=== PATIENT | male | born 1950 | race Caucasian/White ===

== ENCOUNTER 2022-06-12 19:39 | Emergency (ER) | payer MEDICARE, OTHER, SELFPAY ==
--- NOTE | 2022-06-12 19:42 | ED.EYEPROB ---
HPI - Eye Problem General Chief complaint: Eye Problems Stated complaint: Eye Problem Time Seen by Provider: 06/12/22 19:42 Source: patient and RN notes reviewed History of Present Illness HPI Narrative: Patient is a 71-year-old male who presents the urgent care with his spouse with complaints of left eye itchiness and pain. Patient states he was out working in the yard today and feels like he may have gotten a scratch on the eye. Patient states that he does wear glasses but was not wearing them at the time. 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 Patient does not wear contacts. Denies of any vision change. No other acute complaint. No acute distress noted. Patient aware of the plan of care. Some parts of this dictation were generated by voice recognition software and may contain typographical and/or grammatical inaccuracies. Related Data Home Medications Medication Instructions Recorded Confirmed amlodipine 5 mg tablet mg 06/12/22 carvedilol 12.5 mg tablet mg 06/12/22 rosuvastatin 10 mg tablet mg 06/12/22 Allergies Allergy/AdvReac Type Severity Reaction Status Date / Time No Known Allergies Allergy Verified 06/12/22 20:00 Review of Systems Review of Systems: CONSTITUTIONAL: Denies fever, chills, or sweats. EYES: Reports of left eye pain and discomfort ENT: Denies rhinorrhea, congestion, sore throat, or otalgia. CARDIOVASCULAR: Denies chest pain, palpitations, or edema. RESPIRATORY: Denies cough or dyspnea. GASTROINTESTINAL: Denies abdominal pain, nausea, vomiting, or diarrhea. GENITOURINARY: Denies dysuria or hematuria. SKIN: Denies rash or itching. MUSCULOSKELETAL: Denies back pain, joint pain, or myalgia. NEUROLOGIC: Denies headache, numbness, or weakness. All other systems reviewed are negative, except as documented in HPI. PMFSH Comments At the time of my signature, I reviewed and agree with the nursing past medical, surgical, social, and family history. There is no relevant family history pertinent to the patient complaint. Exam Narrative: GENERAL: This is a well-nourished, well-developed patient, in no apparent distress. HEAD: normocephalic, atraumatic. EYES: PERRL. Right sclera clear/white. Moderate left injected/erythemic conjunctive a and sclera without any obvious foreign body or traumatic injury. Vision is grossly intact. EARS: External ears normal NOSE: External nose normal with no obvious nasal discharge, nares without redness, no rhinorrhea. THROAT: Mucous membranes moist NECK: Neck supple SKIN: warm, intact with no suspicious lesions or rash, good texture and turgor. NEURO: awake, alert, and oriented to person, place and time. There were no obvious focal neurologic abnormalities. EXTREMITIES: No clubbing, cyanosis, or edema. Course Course Level of Care: Express Care Visit Vital Signs Vital signs: Vital Signs Temperature 98.1 F 06/12/22 19:50 Pulse Rate 73 06/12/22 19:50 Respiratory Rate 18 06/12/22 19:50 Blood Pressure 144/81 H 06/12/22 19:50 Pulse Oximetry 98 06/12/22 19:50 Temperature 98.1 F 06/12/22 19:50 Pulse Rate 73 06/12/22 19:50 Respiratory Rate 18 06/12/22 19:50 Blood Pressure 144/81 H 06/12/22 19:50 Pulse Oximetry 98 06/12/22 19:50 Reviewed-Patient is informed that they may have pre-hypertension or hypertension based on a blood pressure reading in the department. I recommend the patient call the primary care provider listed on their discharge instructions or a physician of their choice this week to arrange follow-up for further evaluation of possible pre-hypertension or hypertension. Procedures Other Procedure Procedure 1: Other Procedure: No obvious traumatic injury or foreign body to the left eye. Patient states that he does not wish to have the staining or flushing of the eye. Did offer tetracaine in which patient was agreeable. Patient is aware that follow-up with an electrical discharge machine operator is recommended within the next 2 day
[2022-06-12 19:50] VITALS: BP 144/81; PULSE 73; RESP 18; TEMP 36.7; O2SAT 98
== END 2022-06-12 20:05 | disposition home or self-care (01) ==
PROVIDERS: Emergency Provider Nurse Practitioner Family; PCP Internal Medicine
DX: H57.12 Ocular pain, left eye (principal); E78.00 Pure hypercholesterolemia, unspecified; I10 Essential (primary) hypertension
CPT/HCPCS: 99213; G0463